=== PATIENT | female | born 1950 | race Caucasian/White ===

== ENCOUNTER → 2021-02-20 | Outpatient (CLI) | payer MEDICARE, OTHER, SELFPAY ==
--- NOTE | 2021-02-20 | CYSPIN_PTH ---
PATIENT: TIM SPAULDING LOC: [facility] U#:[id number] AGE/SX: 70/F ROOM: RE02/20/[address]: Dr. Caroline Pedro MD : 1950 BED: DIS: 02/20/2021 SPEC #: [id number] RECD: 02/21/21 08:11 STATUS: NIKO REMargaret #: [id number] CHERYLE: 02/20/21 00:[address]: Caroline Pedro DEPT: CYTOLOGY RECD BY: Elias Kebede Tissues: Urine Procedures: Pap Stain (control) Special Stain Group II Cytospin Fluid HEADER OPERATION: Not noted PRE-OP DIAGNOSIS: Gross hematuria, micro-hematuria TISSUE SUBMITTED: Urine for cytology DIAGNOSIS CYTOLOGY Urine for cytology (cytospin): Negative for malignant cells. Mild acute inflammation. See comment. BERNARD:janet 02/21/2021 COMMENT The specimen predominantly consists of benign squamous epithelial cells. Clinical correlation and appropriate follow up are necessary. CYTOLOGY STUDY Slides are reviewed. CYTOLOGY GROSS Received is 20 ml of yellow cloudy fluid labeled with the patient's name and and designated per the requisition as urine. Submitted for cytology preparation. / janet 02/21/2021 TC:2 CPT: 15474
[2021-02-20 15:32] LABS: Cytology, Body Fluid / CSF SEE PATHOLOGY REPORT
== END | disposition home or self-care (01) ==
LOC: LABSPEC 15:15
PROVIDERS: Referring Provider Urology; Visit Provider Urology
DX: R31.0 Gross hematuria (principal); R31.1 Benign essential microscopic hematuria
CPT/HCPCS: 88108; 88313